=== PATIENT | female | born 1945 | race Caucasian/White ===

== ENCOUNTER 2017-08-17 09:01 | Day surgery (SDC) | payer OTHER ==
[~2017-08-17] VITALS: Ht 147.3 cm; Wt 87.0 kg
[~2017-08-17 09:01] MED LIST: ASPIRIN81 M2 PO; CALCIUM 600 +1 EAC4 PO; CRESTOR10 MG PO; DIOVAN HCT 11 TABLET PO; EYE HEALTH ADU1 EACH PO; FISH OIL 1,0001 EAC7 PO; FOSAMAX70 MG PO; HUMALOG MI100 UNIT/5 SC; ISOSORBIDE MONO60 MG PO; METOPROLOL TAR100 MG PO; MULTIPLE VITAM1 EACH PO; PROAIR HFA8.5 GM IH; SIMVASTATIN20 MG PO; SYNTHROID100 MCG PO; TRANSDERM-SCOP1 EACH TD; VALSARTAN-HCTZ1 EAC1 PO; VITAMIN B12-FO1 EACH PO; ZOLOFT25 MG PO; ZOLOFT50 MG PO
[2017-08-17 09:39] VITALS: BP 117/53
[2017-08-17 13:24] VITALS: BP 114/54
[2017-08-17 14:24] VITALS: BP 130/59
== END 2017-08-17 14:25 | disposition home or self-care (01) ==
LOC: SDC 09:01
PROVIDERS: Obstetrics & Gynecology Gynecology
PROC: 0UDB8ZX Extraction of Endometrium, Via Natural or Artificial Opening Endoscopic, Diagnostic (ICD-10-PCS; principal; 2017-08-17)
DX: N85.02 Endometrial intraepithelial neoplasia [EIN] (principal); N95.0 Postmenopausal bleeding; I10 Essential (primary) hypertension; I25.10 Atherosclerotic heart disease of native coronary artery without angina pectoris; I51.7 Cardiomegaly; E11.9 Type 2 diabetes mellitus without complications; E03.9 Hypothyroidism, unspecified; E66.9 Obesity, unspecified; Z68.39 Body mass index [BMI] 39.0-39.9, adult; Z79.4 Long term (current) use of insulin; Z79.82 Long term (current) use of aspirin; I25.2 Old myocardial infarction; Z95.5 Presence of coronary angioplasty implant and graft; Z95.1 Presence of aortocoronary bypass graft
CPT/HCPCS: 82948; 88305; J0131; J0330; J0690; J1885; J2405; J2765; J3010; Q0175

== ENCOUNTER 2017-09-27 10:20 | Inpatient (IN) | payer OTHER ==
[~2017-09-27] VITALS: Ht 147.3 cm; Wt 85.0 kg
[~2017-09-27 10:20] MED LIST changes: +K-DUR20 MEQ PO; +LANTUS 10100 UNITS/ SC; +NOVOLOG 10100 UNITS/ SC
[2017-09-27 11:03] VITALS: BP 127/60
[2017-09-27 20:20] VITALS: BP 136/61
[2017-09-27 23:37] VITALS: BP 128/58
[2017-09-28 04:43] VITALS: BP 132/63
[2017-09-28 05:37] LABS: BASOPHIL (%) 0.1 % (0-1); EOSINOPHIL (%) 0 % (0-5); HEMOGLOBIN 9.6 G/DL (11.9-15.5); IMMATURE GRANULOCYTE (%) 0.3 % (0.0-0.7); LYMPHOCYTE (%) 4.9 % (15-42); LYMPHOCYTE COUNT 0.4 K/uL (1.0-2.8); MCH 30.2 PG (29.0-34.0); MCHC 33.1 G/DL (30.0-36.0); MCV 91.2 FL (83-99); MONOCYTE (%) 5.9 % (3-12); MONOCYTE COUNT 0.4 K/uL (0-0.8); NEUTROPHIL (%) 88.8 % (45-76); NEUTROPHIL COUNT 6.5 K/uL (1.8-6.4); PLATELET COUNT 136 K/uL (156-360); RBC DIS.WIDTH-CV 13.8 % (11.8-14.6); RBC DIS.WIDTH-SD 45.6 % (39-53); RED BLOOD COUNT 3.18 M/uL (3.80-5.20); WHITE BLOOD COUNT 7.3 K/uL (4.1-10.2)
[2017-09-28 06:04] LABS: CHLORIDE 100 MEQ/L (99-109); CREATININE 0.8 MG/DL (0.6-1.3); GFR ESTIMATE (CALCULATED) > 59 mL/min/; GLUCOSE 262 mg/dL (70-99); UREA NITROGEN (BUN) 12 mg/dL (9-23)
[2017-09-28 06:05] LABS: POTASSIUM 4.4 MEQ/L (3.7-5.4); SODIUM 132 MEQ/L (136-147)
[2017-09-28 08:20] VITALS: BP 149/67
[2017-09-28 10:28] LABS: APPEARANCE SL.HAZY ((CLEAR)); BILIRUBIN NEGATIVE; BLOOD MODERATE; COLOR YELLOW ((YELLOW)); GLUCOSE (STRIP) 50; KETONES NEGATIVE; LEUKOCYTES TRACE; NITRITE NEGATIVE; PROTEIN (STRIP) NEGATIVE; SPECIFIC GRAVITY 1.006 (1.000-1.030); UROBILINOGEN 0.2 MG/DL (0.2-1.0)
[2017-09-28 10:43] LABS: BACTERIA NONE SEEN /HPF; EPITHELIAL CELLS RARE /HPF; MUCUS TRACE /LPF; RED BLOOD CELLS TNTC /HPF (0-5); WHITE BLOOD CELLS 0-5 /HPF (0-5)
[2017-09-28 16:40] VITALS: BP 141/71
[2017-09-28 20:32] VITALS: BP 156/67
[2017-09-28 23:58] VITALS: BP 148/72
[2017-09-29 03:49] VITALS: BP 144/60
[2017-09-29 06:42] LABS: BASOPHIL (%) 0.3 % (0-1); EOSINOPHIL (%) 1.1 % (0-5); EOSINOPHIL COUNT 0.1 K/uL (0-0.3); HEMATOCRIT 29.7 % (36.0-46.0); HEMOGLOBIN 9.9 G/DL (11.9-15.5); IMMATURE GRANULOCYTE (%) 0.3 % (0.0-0.7); LYMPHOCYTE (%) 11.8 % (15-42); LYMPHOCYTE COUNT 1.1 K/uL (1.0-2.8); MCH 30.1 PG (29.0-34.0); MCHC 33.3 G/DL (30.0-36.0); MCV 90.3 FL (83-99); MONOCYTE (%) 10.5 % (3-12); MONOCYTE COUNT 0.9 K/uL (0-0.8); NEUTROPHIL COUNT 6.8 K/uL (1.8-6.4); PLATELET COUNT 156 K/uL (156-360); RED BLOOD COUNT 3.29 M/uL (3.80-5.20); WHITE BLOOD COUNT 8.9 K/uL (4.1-10.2)
[2017-09-29 07:10] LABS: ALBUMIN 3.6 G/DL (3.2-4.8); ALKALINE PHOSPHATASE 100 IU/L (3-129); ALT (GPT) 12 IU/L (3-49); AST (GOT) 18 IU/L (2-34); CHLORIDE 104 MEQ/L (99-109); CREATININE 0.7 MG/DL (0.6-1.3); GFR ESTIMATE (CALCULATED) > 59 mL/min/; GLUCOSE 167 mg/dL (70-99); POTASSIUM 3.9 MEQ/L (3.7-5.4); TOTAL BILIRUBIN 0.7 MG/DL (0.0-1.0); TOTAL PROTEIN 5.8 G/DL (6.4-8.3); UREA NITROGEN (BUN) 10 mg/dL (9-23)
[2017-09-29 07:11] LABS: SODIUM 139 MEQ/L (136-147)
[2017-09-29 07:30] VITALS: BP 118/74; BP 151/90
[2017-09-29 12:01] VITALS: BP 147/72
[2017-09-29] MEDS ORDERED: ELIQUIS5 MG PO (14:03)
== END 2017-09-29 14:34 | disposition home or self-care (01) | DRG 741 ==
LOC: SDC 10:20 → 2SOUTH 15:54 → ENRESERV 15:56 → SDC 16:45 → ENRESERV 17:39 → 4EAST 20:19 → 2EAST 20:41 → 4EAST 20:41 → ENRESERV 09-28 15:24 → 4EAST 09-28 17:33 → ENRESERV 09-28 19:27 → 2EAST 09-28 20:15
PROVIDERS: Obstetrics & Gynecology Gynecology
PROC: 0UT74ZZ Resection of Bilateral Fallopian Tubes, Percutaneous Endoscopic Approach (ICD-10-PCS; principal; 2017-09-27)
PROC: 0UT24ZZ Resection of Bilateral Ovaries, Percutaneous Endoscopic Approach (ICD-10-PCS; principal; 2017-09-27)
PROC: 0TJB8ZZ Inspection of Bladder, Via Natural or Artificial Opening Endoscopic (ICD-10-PCS; principal; 2017-09-27)
PROC: 0UT9FZZ Resection of Uterus, Via Natural or Artificial Opening With Percutaneous Endoscopic Assistance (ICD-10-PCS; principal; 2017-09-27)
PROC: 0WUF0JZ Supplement Abdominal Wall with Synthetic Substitute, Open Approach (ICD-10-PCS; principal; 2017-09-27)
DX: C54.1 Malignant neoplasm of endometrium (principal); E66.01 Morbid (severe) obesity due to excess calories; N95.0 Postmenopausal bleeding; E10.65 Type 1 diabetes mellitus with hyperglycemia; I25.10 Atherosclerotic heart disease of native coronary artery without angina pectoris; K43.2 Incisional hernia without obstruction or gangrene; I48.0 Paroxysmal atrial fibrillation; I10 Essential (primary) hypertension; I25.2 Old myocardial infarction; Z95.1 Presence of aortocoronary bypass graft; Z68.39 Body mass index [BMI] 39.0-39.9, adult; E78.5 Hyperlipidemia, unspecified; D63.8 Anemia in other chronic diseases classified elsewhere
CPT/HCPCS: 80048; 80053; 81003; 82948; 85025; 87086; 88305; 88309; 93005; 94640; 94799; 99202; J0131; J0690; J1100; J1644; J1815; J2001; J2765; J2795; J3010; J3475; J7120; S0020